=== PATIENT | female | born 1940 | race Caucasian/White ===

== ENCOUNTER → 2024-07-21 10:43 | Outpatient (REF) | payer MEDICARE, SELFPAY | LOC: WDC 10:43 | PROVIDERS: ATTENDING PHYSICIAN Family Medicine | DX: N64.4 Mastodynia (principal) | CPT/HCPCS: 76642; 77062; 77066 ==

== ENCOUNTER 2024-12-11 07:35 | Inpatient (IN) | payer MEDICARE, SELFPAY ==
[2024-12-08] VITALS (12 sets, daily range): BP systolic 128–193; BP diastolic 60–106
--- NOTE | 2024-12-08 15:51 | ED.CVA ---
History of Present Illness
General
Chief Complaint: CVA/TIA Symptoms
Time Seen by Provider: 12/08/24 15:42
Onset of Stroke Symptoms
Onset of symptoms known: No
Time pt last seen normal is known: Yes
Date last time pt seen normal: 01/03/25
History of Present Illness
History of Present Illness:
Patient presents to the emergency department with possible stroke like symptoms. Apparently, she showed up to her sales financial analyst's office, left the car running and went inside without an appointment. There they noted she had some slurred speech
and a possible left-sided facial droop. Unknown last known well though she was seen Friday and was apparently normal. Patient is somewhat disoriented and does not provide a reliable history. She denies any pain anywhere at this time. States she
feels at her baseline.
Past History
Past History
ED Past Medical History: GERD, HTN, Hypercholesterolemia and Psychiatric (Anxiety)
ED Past Surgical History: Cholecystectomy, Gynecological (Tubal ligation) and Orthopedic (Right total knee replacement)
Social History
Tobacco: Former smoker
Alcohol: None
Drug: None
Personal:
Living: alone
Employment: Retired
Family History
Family History: Other (Noncontributory)
Phy Exam
Physical Exam
Physical Exam:
GENERAL APPEARANCE: NAD, well developed/ well nourished
EYES lids/conjunctiva normal
EARS/NOSE/THROAT Mucous membranes moist, uvula midline without oral pharyngeal erythema, exudate or swelling
HEAD/NECK normocephalic atraumatic, neck is supple.
RESPIRATORY respiratory effort normal, speaks in full sentences, no accessory muscle use. Lungs clear to auscultation without rhonchi, wheezes, rales
CARDIAC Regular rate and rhythm, no edema.
ABDOMINAL Soft, ND/NT. No pulsatile masses on exam, rebound tenderness, Mccain sign or pain over Mcburney's point.
MUSCLES/EXTREMITIES No abnormal range of motion, no swelling.
SKIN Warm, pink and dry. No rashes
NEUROLOGICAL Awake alert. Mild disorientation (can say month but not year) mild dysarthria noted. There is a left-sided central facial droop that can be overcome. Cranial nerves are otherwise intact. She has 5 out of 5 strength in all 4
extremities. Sensation intact to light touch throughout. No dysmetria or ataxia.
PSYCH Normal mood and affect
Course
Orders/Labs/Results
Orders:
Orders
12/08/24 15:27
CT Head W/o Iv Contrast Urgent
Comment:
Reason For Exam: facial droop/ confusion
12/08/24 15:50
Alcohol Urgent
Basic Metabolic Panel Urgent
CBC/With Diff [Complete Blood Count/With Diff] Urgent
Urinalysis Reflex To Culture Urgent
Date Specimen was Collected: 12/08/24
Time Specimen was Collected: 18:05
12/08/24 17:46
Electrocardiogram (*1) Urgent
Reason for Study: TIA/Stroke
CR Chest - 2 Views Urgent
Comment:
Reason For Exam: altered mental status
Abnormal Lab Results
12/08/24
15:50
MCH 33.0 H pg
(27.0-31.0)
Absolute Lymphs (auto) 1.1 L 10^3/uL
(1.2-3.4)
Absolute Monos (auto) 0.8 H 10^3/uL
(0.1-0.6)
Lymphocytes % 16.2 L %
(20.5-51.1)
Monocytes % 11.6 H %
(1.7-9.3)
BUN 29 H mg/dl
(7-17)
Creatinine 1.1 H mg/dL
(0.6-1.0)
12/08/24 15:50
12/08/24 15:50
Vital Signs
Initial and Last Documented VS:
Initial Vital Signs
Temp Pulse Resp BP Pulse Ox
98.2 F 74 18 193/106 97
12/08/24 15:23 12/08/24 15:23 12/08/24 15:23 12/08/24 15:23 12/08/24 15:23
Last Documented Vital Signs
Temp Pulse Resp BP Pulse Ox
98.2 F 76 19 128/60 94
12/08/24 15:23 12/08/24 17:32 12/08/24 17:32 12/08/24 17:32 12/08/24 17:32
*Pulse Oximetry
SaO2: 96
Oxygen Mode of Delivery: Room air
Patient hypoxic: no
*Critical Care Note
Total Time (30-74mins, 75-104mins- exclusive of procedures): Not Applicable
ED Attending Note
ED Attending Note
ED Attending Note:
Patient presents to the department with disorientation, dysarthria, slight facial droop that is overcome easily. Unknown last known well so she does not a thrombolytic candidate. No signs or symptoms of a large vessel occlusion at this time. Will
workup for altered mental status with plan to likely admit for stroke rule out otherwise.
-
Portions of this chart may have been created with voice recognition software.� Occasional wrong word or��sound alike� substitutions may have occurred due to the inherent limitations of voice recognition software.
Discharge Plan
Departure
Prescriptions:
No Action
calcium carbonate [Oyster Shell Calcium 500] 500 MG tablet
500 mg PO DAILY
venlafaxine [Effexor XR] 150 mg Capsule,Extended Release 24hr
150 mg PO DAILY
nebivolol [Bystolic] 5 mg Tablet
5 mg PO DAILY
Jose Laser Focus Gummys
2 gummy PO DAILY
Referrals:
Joe Suarez MD [Family Provider, [facility]]
Interventions
Interventions:
*Risk Screen - Suicide Last Done: 12/08/24 15:23
*General Assessment Last Done: 12/08/24 15:23
*Neglect/Abuse Screening Last Done: 12/08/24 15:23
*ED COVID-19 Vaccine History Last Done: 12/08/24 15:23
ED- Pulmonary Assessment Last Done: 12/08/24 15:53
ED- Neurological Assessment Last Done: 12/08/24 15:53
ED- Cardiac Assessment Last Done: 12/08/24 15:53
Discharge Date and Time
Print Language: IRISH
[2024-12-08 15:58] LABS: Hematocrit 42.5 % (37.0-47.0); Hemoglobin 14.7 g/dL (12.0-16.0); Mean Corp Hgb Conc. 34.6 g/dL (33.0-37.0); Mean Corpuscular Volume 95.5 fL (81.0-99.0); Nucleated Red Blood Cells % 0 %; Platelet Count 209 10^3/uL (130-400); Red Cell Dist. Width 12.6 % (11.5-14.5)
[2024-12-08 16:26] LABS: Blood Urea Nitrogen 29 mg/dl (7-17); Calcium 10.2 mg/dl (8.4-10.2); Carbon Dioxide 30 mmol/L (22-30); Chloride 103 mmol/L (98-107); Glucose 79 mg/dl (70-99); Sodium 139 mmol/L (135-145); eGFR 50.17
--- NOTE | 2024-12-08 19:52 | HPS.HSE ---
Family Physician
-
Family Physician: Joe Suarez
Chief Complaint
-
Slurred speech
History of Present Illness
This is a 84-year-old female with past medical history significant for hypertension, hyperlipidemia, GERD who presents with flulike symptoms.
She was started financial services education consultant's office with an appointment and appeared confused. She left the car running and came inside. She had slurring of speech and small left-sided facial droop. 1 block was called. When patient arrived in the
emergency department she had dysarthria and mild left-sided drooping that can be overcome. She remains disoriented only being oriented to person and place but not year. Stroke alert was called. Last normal was Friday seen by her family.
In the ED she was afebrile, blood pressure was 120/60 with a pulse of 75 and she was satting 96% on room air. ECG showed normal sinus rhythm at a rate of 70.
CT of the head shows no acute infarct but old appearing lacunar infarct and diffuse small vessel disease.
Chest x-ray was clear.
CBC was unremarkable, electrolytes BUN/creatinine within the normal range. Her creatinine is 1.1 which is up from 0.6 about 6 years ago.
UA is pending.
Medical History
Past Medical History
Past Medical History: Reports GERD, HTN and Hypercholesterolemia
Past Surgical History: Reports Cholecystectomy, Orthopedic (Right total knee arthroplasty) and Other (Inguinal hernia repair)
Social History
Tobacco: Former Smoker
Alcohol: None
Drug: None
Living: Alone
Family History
Family History: Not pertinent
Allergies / Home Medications
Allergies reflects when Allergies were last updated in [employer].
Home Medications with original date entered in [employer]
Allergy/Medication List:
Allergies
Allergy/AdvReac Type Severity Reaction Status Date / Time
felodipine Allergy Rash, Verified 02/01/23 14:58
itching
penicillin G Allergy Rash,itchin Verified 02/01/23 14:58
g
Penicillins Allergy Rash, Verified 02/01/23 14:58
itching
Sulfa (Sulfonamide Allergy Pharmacy Verified 02/01/23 14:58
Antibiotics) to Review
sulfamethoxazole Allergy Pharmacy Verified 02/01/23 14:58
to Review
trimethoprim Allergy Pharmacy Verified 02/01/23 14:58
to Review
Adhesive Allergy Itching Uncoded 02/01/23 14:58
Home Medications
calcium carbonate (Oyster Shell Calcium 500) 500 mg PO DAILY 05/26/18
Jose Laser Focus Gummys 2 gummy PO DAILY 12/08/24
nebivolol 5 mg tablet (Bystolic) 5 mg PO DAILY 12/08/24
venlafaxine 150 mg capsule,extended release 24 hr (Effexor XR) 150 mg PO DAILY 12/08/24
Review of Systems
-
History Source: Patient
Constitutional: Reports No Symptoms
EENT: Reports No Symptoms
Respiratory: Reports No Symptoms
Cardiac: Reports No Symptoms
Abdomen/GI: Reports No Symptoms
: Reports No Symptoms
Musculoskeletal: Reports No Symptoms
Skin: Reports No Symptoms
Neurological: Reports Other (Slurred speech)
Endocrine: Reports No Symptoms
Hematologic/Lymphatic: Reports No Symptoms
Psych: Reports No Symptoms
Physical Exam
Vital Signs
Vital Signs
Temp Pulse Resp BP Pulse Ox
98.2 F 75 20 128/60 96
12/08/24 15:23 12/08/24 19:30 12/08/24 19:30 12/08/24 17:32 12/08/24 19:30
Physical Exam
General: Well Developed, Well Nourished and No Apparent Distress
HEENT: NormoCephalic, Moist mucous membranes and Atraumatic
Respiratory: Clear
Cardiac: S1/S2 and Regular Rhythm; No Murmur or Rub
GI: Soft, Non Tender, Non Distended and Normal Bowel Sounds; No Organomegaly
Rectal: Deferred by Provider
Musculoskeletal: No Clubbing, No Cyanosis and No Edema
Skin: No Rash
Neuro: Oriented (oriented x 2), Nonfocal/grossly intact and Facial Droop
Hematologic/Lymphatic: No Lymphadenopathy
Psych: Calm
Laboratory Results
-
12/08/24 15:50
12/08/24 15:50
Laboratory Results
Total Bilirubin Cancelled 12/08/24 15:50
AST Cancelled 12/08/24 15:50
ALT Cancelled 12/08/24 15:50
Alkaline Phosphatase Cancelled 12/08/24 15:50
Data Reviewed
-
Diagnostic Radiology: Image Personally Visualized and interpreted
CT Scan: Report Reviewed by me
Medical Tests (Nuc Med, Echo, EKG etc): Image Personally Visualized and interpreted
Lab Data: Labs Reviewed by me
Old Records: Reviewed
Impression/Plan
-
IMPRESSION:
84-year-old with history of hypertension and hyperlipidemia presenting to the emergency department with left-sided facial droop and slurred speech and some disorientation concerning for CVA or TIA. On my examination NIHSS score 0. There is no
facial droop. There is no slurred speech. She does have moderate risk of CVA. 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
PLAN:
CVA/TIA
-Admit to telemetry observation
-Start aspirin 324 now, then 81 daily
- start low dose statin
-Speech and swallow evaluation, then cholesterol-lowering diet if passed
-Neurochecks every 4 hours
-Echo, MRI in a.m.
-Check TSH
- UA pending
-Cardiovascular panel, ESR
-Continue antihypertensives with permissive hypertension for now
-Neurology consultation
DVT prophylaxis�Lovenox subcu
CODE STATUS�full code
[2024-12-08 22:09] LABS: Urine Character Clear (Clear)
[2024-12-09] VITALS (10 sets, daily range): BP systolic 146–198; BP diastolic 54–117; PULSE 65–68; O2SAT 95
--- NOTE | 2024-12-09 01:00 | PTCARENOTE ---
Pt is a 84-year-old female with arrived from ED at 00:30 dx TIA, PMH HTN, HLD, GERD who presents with flulike symptoms. Pt passed the swallow eval., diet ordered. Pt AOx3, bed in a low position, call light in reach, care ongoing.
[2024-12-09] MEDS: ASPIRIN 325 MG PO (01:45)
[2024-12-09 06:20] LABS: Hematocrit 40.5 % (37.0-47.0); Hemoglobin 13.8 g/dL (12.0-16.0); Mean Corp Hgb Conc. 34.1 g/dL (33.0-37.0); Mean Corpuscular Volume 96.4 fL (81.0-99.0); Platelet Count 187 10^3/uL (130-400); Red Cell Dist. Width 12.6 % (11.5-14.5)
[2024-12-09 06:42] LABS: HDL Cholesterol 50 mg/dl; LDL Cholesterol, Calculated 103 mg/dl; Magnesium 2.3 mg/dl (1.6-2.3); Very Low Density Lipoprotein 24 mg/dl (0-30)
[2024-12-09] MEDS: BYSTOLIC 5 MG PO (08:07)
[2024-12-09] MEDS: LOW STRENGTH ASPIRIN 81 MG PO (08:07)
[2024-12-09] MEDS: EFFEXOR XR 150 MG PO (08:07)
--- NOTE | 2024-12-09 08:35 | CON.NEURO4 ---
Addendum entered and electronically signed by Ruy Colindres MD 12/09/24 12:07:
Studies reviewed.
I have personally examined the patient. I reviewed and agree with the E BUSINESS PROJECT MANAGER's Note.
My addenda:
Awake, alert, interactive. No acute distress.
Speech intact.
Follows 2-step requests w/ mild difficulty. No tremor.
Extra-ocular movements grossly intact.
Facial movements full and symmetric. Hearing reduced to normal conversational volume.
Normal UE movements bilaterally.
Neck: full ROM.
Chest: no dyspnea
Heart: no JVD
Ext: (-) Clubbing, (-) Cyanosis, (-) Edema
IMPRESSIONS/RECOMMENDATIONS:
Abrupt onset of change in mental status. Differential diagnosis is extensive for this patient unfortunately they may include underlying dementia, stroke, nonconvulsive status, and psychological disassociative state
Check MRI of brain with and without contrast
Check blood work potential metabolic causes
Provide thiamine
Check EEG only because of the acute change and her confusion
Continue antidepressant
Continue newly initiated aspirin
Would initiate atorvastatin 40 mg due to LDL greater than 70 and the possibility that this event represented an acute ischemic stroke
D/W patient
All questions answered.
Will continue to follow patient.
Original Note:
Documented by User: Dali Chowdhury NP 12/09/24 11:23
Consultation - Neurology 4
-
CONSULTING PHYSICIAN: Ruy Colindres MD
REFERRING PHYSICIAN: Hospitalists/Dr. Alves
DICTATED BY: COLLEEN Villasenor
DATE/TIME OF REQUEST: 12/09/24
DATE/TIME OF CONSULTATION: 12/09/24
Reason for Consultation: Change in mental status
History of Present Illness:
This is an 84-year-old right-handed female who has presented to the hospital on 12/08/24 with report of confusion. Patient lacks insight to the events leading her to the hospital but reports it is because she got upset about the of her son in
front of her financial dealers. Per medical records, the patient was last seen in her usual state by her family three days ago on 12/06/24. Yesterday (12/09/24), the patient went to her manager of financial planning's office, left her car running in the parking lot
and entered the building. She appeared confused to staff and they had concern for dysarthria and left facial drooping, prompting them to call 911. On arrival in the ER, she was still confused, prompting a stroke alert to be called. CT head was
obtained and is negative for any acute abnormalities but is suggestive of an old left subinsular lacunar infarct. She was not a candidate for TNK/IAT due to NIHSS 0. Blood pressure was elevated at 193/106. She was loaded with aspirin. Patient denies
any headache, dizziness, vision changes, speech/swallowing difficulty, numbness, and weakness.
Past Medical History: HTN, HLD, GERD, chronic gastritis
Surgical History: Cholecystectomy, R TKR, inguinal hernia repair
Family History: Reviewed and noncontributory.
Social History: Former smoker. Denies alcohol and illicit drug use.
Allergies: Penicillins, sulfamethoxazole, trimethoprim, felodipine, adhesive.
Home Medications: See below.
Review of Symptoms:
Patient denies any fever, headache, chest pain, shortness of breath, GI or symptoms.
�Per the HPI.�All systems are reviewed negative except above.
Physical Exam:
The patient is afebrile, abdomen is nondistended, breathing is unlabored, skin is warm and dry, no edema, swan neck changes in bilateral feet.
NIH Stroke Scale:
I performed the NIH stroke scale on the patient on 12/09/24 at 0845. The patient scored 0 points on the NIH stroke scale assessment, which were assigned as follows: See below.
Neurologic Examination:
The patient is awake, alert and oriented x 3, lacks insight. Difficulty naming next holidays, most recent holiday- day, unable to state before that. There is no aphasia or dysarthria. Severe difficulty following two-step commands. On cranial
nerve assessment, pupils are 3 mm bilateral, round and reactive to light and accommodation. Visual steiner are full. Extraocular movements are mildly reduced with upgaze. Facial sensations are intact and bilaterally symmetrical, there is no facial
asymmetry. Hearing is diminished bilaterally to normal conversation volume. Tongue palate and uvula are midline. Sternocleidomastoid strengths are full bilaterally. Motor strengths are 5/5 bilateral upper and lower extremities on medical research
[place] scale. There is no drift or involuntary movement noted. Deep tendon reflexes are 2+ bilateral upper and lower extremities and Babinski is absent bilaterally. There was no extinction noted on double simultaneous stimulation. Coordination is
intact by finger to nose bilaterally.
Lab Results: See below.
Neuro Imaging:
1. CT Head 12/08/24: No acute intracranial abnormality noted. There is moderate subcortical, deep, and periventricular white matter low-attenuation, compatible with changes of chronic small vessel ischemic disease. Small hypodensity within the left
subinsular white matter likely prior small lacunar infarction.
2. Vascular Ultrasound 12/09/24: Minimal calcified plaque within the left carotid bulb, measurements suggestive of less than 50% stenosis as per modified Society of Radiologists in Ultrasound consensus criteria (IAC carotid criteria white paper,
2020). No significant right carotid bulb plaque or stenosis.
Differentials for the patient's presentation include:
1. Change in mental status; uncertain etiology, possibilities include small ischemic stroke, hypertensive encephalopathy, metabolic abnormality, underlying cognitive impairment.
Patient has the following risk factors for their symptoms: HTN, HLD, age
IV Tenecteplase/IAT candidacy: She was not a candidate for TNK/IAT due to NIHSS 0.
Recommendations:
-Continue aspirin 81mg daily.
-MRI brain noncontrast pending.
-Goal normotension.
-Checking blood work for metabolic abnormalities.
-Goal normoglycemia, hbA1c is 5.6.
-LDL goal <70. LDL is 103. Initiate atorvastatin 40mg daily.
-NIHSS and neurological checks per unit guidelines.
-Provide patient with a stroke education packet.
-PT/OT/ST evaluation.
-DVT prophylaxis.
Discussed patient care with: Dr. Colindres, the patient
Vital Signs and Labs
-
Vital Signs and Labs:
Vital Signs
Temp Pulse Resp BP Pulse Ox
98.2 F 72 16 196/87 92
12/09/24 07:10 12/09/24 07:10 12/09/24 07:10 12/09/24 07:10 12/09/24 07:10
Lab Results
12/09/24 06:01
12/08/24 15:50
Sodium 139 mmol/L (135-145) 12/08/24 15:50
Potassium mmol/L (3.5-5.1) 12/08/24 15:50
BUN 29 mg/dl (7-17) H 12/08/24 15:50
Glucose 79 mg/dl (70-99) 12/08/24 15:50
Calcium 10.2 mg/dl (8.4-10.2) 12/08/24 15:50
LDL Cholesterol, Calc 103 mg/dl 12/09/24 06:01
Medications
-
Active Medications
Generic Name Dose Route Start Last Admin
Trade Name Freq PRN Reason Stop Dose Admin
Acetaminophen 650 mg 12/09/24 00:53
Acetaminophen 650 Mg Rectal Suppository RECTAL 01/06/25 00:52
Q4HPRN PRN
HERRON, mild pain, or temp >100.4F
Acetaminophen 650 mg 12/09/24 00:53
Acetaminophen 325 Mg Tablet PO 01/06/25 00:52
Q4HPRN PRN
HERRON, mild pain, or temp >100.4F
Alprazolam 0.25 mg 12/09/24 00:53
Alprazolam 0.25 Mg Tablet PO 01/06/25 00:52
DAILY PRN
for MRI as needed
Aspirin 81 mg 12/09/24 08:00 12/09/24 08:07
Aspirin 81 Mg Chewable Tablet PO 01/06/25 07:59 81 mg
DAILY RAQUEL Administration
Atorvastatin Calcium 20 mg 12/09/24 18:00
Atorvastatin (Lipitor) 20 Mg Tablet PO 01/06/25 17:59
QPM RAQUEL
Enoxaparin Sodium 40 mg 12/09/24 18:00
Enoxaparin Sodium 40 Mg/0.4 Ml Syringe SC 01/06/25 17:59
QPM RAQUEL
Nebivolol 5 mg 12/09/24 08:00 12/09/24 08:07
Nebivolol Hcl 2.5 Mg Tablet PO 01/06/25 07:59 5 mg
DAILY RAQUEL Administration
Venlafaxine HCl 150 mg 12/09/24 08:00 12/09/24 08:07
Venlafaxine 150 Mg Extended Release Capsule PO 01/06/25 07:59 150 mg
DAILY RAQUEL Administration
Home Medications
�Medication �Instructions �Recorded
calcium carbonate (Oyster Shell 500 mg PO DAILY Gastrointestinal 05/26/18
Calcium 500) Issue
Jose Laser Focus Gummys 2 gummy PO DAILY Supplement 12/08/24
nebivolol 5 mg tablet (Bystolic) 5 mg PO DAILY Blood Pressure 12/08/24
venlafaxine 150 mg 150 mg PO DAILY Mental 12/08/24
capsule,extended release 24 hr Health/Anxiety
(Effexor XR)
NIH Stroke Score
Subsequent NIH Scale
Date of Subsequent NIH Scale: 12/09/24
Time of Subsequent NIH Scale: 08:45
NIH Stroke Score
Level of Consciousness: 0 - Alert
LOC Questions: 0-Answers both correctly
LOC Commands: 0-Performs both correctly
Best Horizontal Gaze: 0-Normal
Visual Steiner: 0=Normal, no visual loss
Facial Palsy: 0=Normal, symmetrical
Motor - Right Arm: 0=No drift 10 seconds
Motor - Left Arm: 0=No drift 10 seconds
Motor - Right Le-No drift 5 seconds
Motor - Left Le-No drift 5 seconds
Limb Ataxia: 0-Absent
Sensation: 0-Normal
Best Language: 0-No aphasia
Dysarthria: 0-Normal
Extinction and Inattention: 0-No abnormality
NIH Total Score:: 0
Modified Jing (mRS) Score
Modified Jing Scale (mRS): Moderate disability. Requires some help, able to walk unassisted.
Score: 3
Alteplase Contraindication
Inclusion and Exclusion criteria reviewed: Yes
Reasons for NON-Tx with Thrombolytics ABSOLUTE Exclusions: Greater than 4.5 hrs from onset of sxs
IAT Contraindications: NIHSS < 6

Documented by User: Ruy Colindres MD 12/09/24 11:50
NIH Stroke Score
NIH Stroke Score
NIH Total Score:: 0
Modified Jing (mRS) Score
Score: 3
Past History
Past History
ED Past Medical History: GERD, HTN, Hypercholesterolemia and Psychiatric (Anxiety)
ED Past Surgical History: Cholecystectomy, Gynecological (Tubal ligation) and Orthopedic (Right total knee replacement)
Social History
Tobacco: Former smoker
Alcohol: None
Drug: None
Personal:
Living: alone
Employment: Retired
Family History
Family History: Other (Reviewed and noncontributory)
Medications
-
Medications:
Generic Name Dose Route Start Last Admin
Trade Name Freq PRN Reason Stop Dose Admin
Acetaminophen 650 mg 12/09/24 00:53
Acetaminophen 650 Mg Rectal Suppository RECTAL 01/06/25 00:52
Q4HPRN PRN
HERRON, mild pain, or temp >100.4F
Acetaminophen 650 mg 12/09/24 00:53
Acetaminophen 325 Mg Tablet PO 01/06/25 00:52
Q4HPRN PRN
HERRON, mild pain, or temp >100.4F
Alprazolam 0.25 mg 12/09/24 00:53
Alprazolam 0.25 Mg Tablet PO 01/06/25 00:52
DAILY PRN
for MRI as needed
Aspirin 81 mg 12/09/24 08:00 12/09/24 08:07
Aspirin 81 Mg Chewable Tablet PO 01/06/25 07:59 81 mg
DAILY RAQUEL Administration
Atorvastatin Calcium 20 mg 12/09/24 18:00
Atorvastatin (Lipitor) 20 Mg Tablet PO 01/06/25 17:59
QPM RAQUEL
Enoxaparin Sodium 40 mg 12/09/24 18:00
Enoxaparin Sodium 40 Mg/0.4 Ml Syringe SC 01/06/25 17:59
QPM RAQUEL
Nebivolol 5 mg 12/09/24 08:00 12/09/24 08:07
Nebivolol Hcl 2.5 Mg Tablet PO 01/06/25 07:59 5 mg
DAILY RAQUEL Administration
Venlafaxine HCl 150 mg 12/09/24 08:00 12/09/24 08:07
Venlafaxine 150 Mg Extended Release Capsule PO 01/06/25 07:59 150 mg
DAILY RAQUEL Administration
[2024-12-09 08:57] LABS: Glycohemoglobin (HgbA1c) 5.6 % (4.0-5.6)
--- NOTE | 2024-12-09 09:00 | PTOTSP ---
Speech Language Pathology
Pt seen with speech/language evaluations. No dysarthria noted. Language evaluated via the Quick Aphasia Battery (QAB), form 1. Pt with an overall score of 9.70, indicative of skills WNL. Pt scored WNL on all subtests except repetition with a
score of 8.75, indicative of mild deficits. However, pt reported reduced hearing on L, so suspect related to reduced hearing, not a true deficit.
Pt also seen for clinical bedside swallow evaluation. Seen with breakfast tray of regular solids, and thin liquids provided. Adequate mastication, bolus formation, and A-P transit noted. One coughing episode noted when talking with a mouthful of
food. No other coughing noted.
Recommend:
(1) Regular solids/thin liquids
(2) General aspiration precautions
(3) Meds as tolerated
(4) PHOTOTYPESETTING EQUIPMENT MONITOR to follow pending MRI
[2024-12-09 10:00] LABS: ALT (SGPT) 15 U/L (0-35); AST (SGOT) 23 U/L (14-36); Albumin 3.8 g/dl (3.5-5.0); Alkaline Phosphatase 95 U/L (38-126); Blood Urea Nitrogen 23 mg/dl (7-17); Calcium 9.6 mg/dl (8.4-10.2); Carbon Dioxide 32 mmol/L (22-30); Chloride 104 mmol/L (98-107); Glucose 105 mg/dl (70-99); Potassium 4.1 mmol/L (3.5-5.1); Sodium 140 mmol/L (135-145); Total Protein 6.0 g/dl (6.3-8.2); eGFR 50.17
[2024-12-09 10:47] LABS: Ferritin 42.4 ng/ml (11.1-264.0)
[2024-12-09 11:19] LABS: Folate > 20.0 ng/ml (2.76-20); Vitamin B12 994 pg/ml (239-931)
--- NOTE | 2024-12-09 11:38 | W.PN.HOSP.TC ---
Today's Communication/Plan
-
see A/P
Assessment / Plan
Assessment / Plan
HPI: 84-year-old with history of hypertension and hyperlipidemia presenting to the emergency department with left-sided facial droop, slurred speech and some disorientation concerning for CVA/TIA.
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 Stroke alert was called.
In the ED, there is no facial droop or slurred speech appreciated.
She does have moderate risk of CVA.
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
A/P:
# facial droop, slurred speech, disorientation, which appear to have resolved, admit for CVA/TIA work up
CT head showed old lacunar infarcts
Check MRI brain, low dose Valium ordered for claustrophilia
Started aspirin 324 now, then 81 daily
started low dose statin
Speech and swallow evaluation, then cholesterol-lowering diet if passed
Neurochecks every 4 hours
I do not think echo is needed at this time, especially if MRI brain negative for stroke , echo cancelled
Urine culture sent, follow up
Continue antihypertensives with permissive hypertension for now
Neurology consultation
PT OT eval
# hypertension urgency
Cont ORDER TRACER Bystolic
IV hydralazine for SBP > 180
Would need to better treat BP prior to discharge
# hyperlipidemia
LDL 103
started low dose statin
DVT prophylaxis�Lovenox subcu
CODE STATUS�full code
DW son on the phone
Anticipated Discharge: Within 24 hours
Subjective/Interval History
-
Date of Service: December 09, 2024
Objective Data
-
Labs:
Laboratory Results
12/09/24
06:01
WBC 5.9
Hgb 13.8
Hct 40.5
Plt Count 187
Sodium 140
Potassium 4.1
Chloride 104
Carbon Dioxide 32 H
BUN 23 H
Creatinine 1.1 H
Glucose 105 H
Calcium 9.6
Total Bilirubin 0.7
AST 23
ALT 15
Alkaline Phosphatase 95
Vital Signs:
Vital Signs
Temp Pulse Resp BP Pulse Ox
36.7 C 72 16 198/96 95
12/09/24 11:05 12/09/24 11:05 12/09/24 11:05 12/09/24 11:05 12/09/24 11:05
Review of Systems
-
History Source: Patient
All other systems: Reviewed and negative
Neuro: Denies Weakness, Numbness or Ataxia
Physical Exam
-
General: Well Developed, Well Nourished, No Apparent Distress, Comfortable and Conversant; Negative Respiratory Distress
HEENT: Normocephalic, Atraumatic, Nose Appears Normal and Ears Appear Normal; Negative Oxygen
Respiratory: Clear to Auscultation and Non Labored Respirations; Negative Accessory Resp Muscle Use
Cardiac: Regular Rhythm and S1/S2
GI: Soft, Nontender, Nondistended and Normal Bowel Sounds
Skin: Warm and Dry
Neuro: Awake, Alert, Oriented and AO x 3; Negative No Sensory Deficits, Slurred Speech or Facial Droop
Psych: Calm and Intact Judgement/Insight
Data Reviewed
-
CT Scan: Report Reviewed by me
Labs: Labs Reviewed by me
[2024-12-09] MEDS: VITAMIN B1 100 MG PO (14:11)
--- NOTE | 2024-12-09 14:43 | CM ---
Patient seen at bedside
IA completed
CM consult completed - stroke/tia
Awaiting MRI
MCLEOD form explained & signed. In chart
Patient lives alone in 2 story home, 1 WILD, 12 steps to bed/bath
PLOF: Independent
states Independent with ADL's
DME: Cane, shower chair
had [facility] 2014 after knee sx, had outpatient PT in past
PT/OT eval
PCP: Joe Suarez
Pharmacy: [address], [place]
PLAN: TBD, follow hospital progress/work-up, CM to follow for needs
--- NOTE | 2024-12-09 15:32 | EEG.RPT ---
Electroencephalogram Report
Recording
Date of EE12/09/24
Type of EEG: Routine
Length of EEG recordin minutes
Done with Video Recording: No
Patient Status: Inpatient
Recording Conditions: Awake and Drowsy
Hyperventilation Performed: No
Photic Stimulation Performed: Yes
Report
LESS THAN 1 HOUR EEG REPORT
LESS THAN 1 HOUR EEG INTERPRETATION:
Likely unremarkable EEG for age
CLINICAL CORRELATION:
Although normative values not been established for a person of this advanced age, the patient�s symmetry of the background suggests that this study was unremarkable.
A normal EEG does not rule out a diagnosis of epilepsy. If clinical suspicion for seizure persists, a prolonged recording may be warranted.
Clinical correlation is advised.
METHODS:
A 21 channel digitized electroencephalogram (EEG) was performed using the 10/20 international system of electrode placement and one-lead of ECG recorded. The VasSol quantitative review system was utilized.
ELECTROENCEPHALOGRAPHER IMPRESSION(S):
Quality of study
Good
Background
There was an unremarkable anterior-posterior voltage gradient of alpha frequency.
With eye opening the background activity changed to a low voltage mixture of frequencies.
There were no significant asymmetries of background activity noted.
Sleep
Drowsiness present
Photic Stimulation
No driving
ECG
Normal sinus rhythm
[2024-12-09] MEDS: LIPITOR 20 MG PO (17:33)
[2024-12-09] MEDS: LOVENOX 40 MG SC (17:34)
[2024-12-09] MEDS: APRESOLINE 10 MG IV (17:56)
[2024-12-09] MEDS: SENOKOT-S 1 TABLET PO (22:50)
[2024-12-09] MEDS: MELATONIN 5 MG PO (22:50)
[2024-12-10] VITALS (7 sets, daily range): BP systolic 108–196; BP diastolic 62–98; PULSE 68; O2SAT 95
[2024-12-10 07:25] LABS: Blood Urea Nitrogen 17 mg/dl (7-17); Calcium 9.0 mg/dl (8.4-10.2); Carbon Dioxide 32 mmol/L (22-30); Chloride 105 mmol/L (98-107); Glucose 118 mg/dl (70-99); Magnesium 2.3 mg/dl (1.6-2.3); Potassium 4.0 mmol/L (3.5-5.1); Sodium 140 mmol/L (135-145); eGFR > 60.00
[2024-12-10] MEDS: EFFEXOR XR 150 MG PO (08:54)
[2024-12-10] MEDS: BYSTOLIC 5 MG PO (08:54)
[2024-12-10] MEDS: SENOKOT-S 1 TABLET PO ×2 (08:55→20:13)
[2024-12-10] MEDS: VITAMIN B1 100 MG PO (08:55)
[2024-12-10] MEDS: LOW STRENGTH ASPIRIN 81 MG PO (08:55)
[2024-12-10] MEDS: VALIUM INJECTION 1 MG IV (10:49)
--- NOTE | 2024-12-10 11:07 | W.PN.HOSP.TC ---
Today's Communication/Plan
-
see A/P
Assessment / Plan
Assessment / Plan
HPI: 84-year-old with history of hypertension and hyperlipidemia presenting to the emergency department with left-sided facial droop, slurred speech and some disorientation concerning for CVA/TIA.
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 Stroke alert was called.
In the ED, there is no facial droop or slurred speech appreciated.
She does have moderate risk of CVA.
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
A/P:
# facial droop, slurred speech, disorientation, which appear to have resolved, admit for CVA/TIA work up
CT head showed old lacunar infarcts
Check MRI brain, low dose Valium ordered for claustrophilia
Carotid US unrevealing: Minimal calcified plaque within the left carotid bulb, less than 50% stenosis. No significant right carotid bulb plaque or stenosis.
Started aspirin 324 now, then 81 daily
started low dose statin, LDL 103
Cont low cholesterol diet
Neurochecks every 4 hours
I do not think echo is needed at this time, especially if MRI brain negative for stroke , echo cancelled
Urine culture sent, Mixed guicho present, hence probable contamination
Continue antihypertensives with permissive hypertension for now
Neurology consultation
PT OT eval
# hypertension urgency
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
Add lisinopril 5 mg (pt was previously on lisinopril 5 mg)
IV hydralazine for SBP > 180
# hyperlipidemia
LDL 103
started low dose statin
DVT prophylaxis�Lovenox subcu
CODE STATUS�full code
DW RN
Anticipated Discharge: Within 24 hours
Subjective/Interval History
-
Date of Service: December 10, 2024
Objective Data
-
Labs:
Laboratory Results
12/10/24
06:15
Sodium 140
Potassium 4.0
Chloride 105
Carbon Dioxide 32 H
BUN 17
Creatinine 0.8
Glucose 118 H
Calcium 9.0
Vital Signs:
Vital Signs
Temp Pulse Resp BP Pulse Ox
36.9 C 68 16 168/89 96
12/10/24 03:00 12/10/24 03:00 12/10/24 03:00 12/10/24 03:00 12/10/24 03:00
I&O
12/09/24 12/10/24 12/11/24
06:59 06:59 06:59
Intake Total 3237 / 3237
Balance 3237 / 3237
Review of Systems
-
History Source: Patient
All other systems: Reviewed and negative
Physical Exam
-
General: Well Developed, Well Nourished, No Apparent Distress, Comfortable and Conversant; Negative Respiratory Distress
HEENT: Normocephalic, Atraumatic, Nose Appears Normal and Ears Appear Normal; Negative Oxygen
Respiratory: Clear to Auscultation and Non Labored Respirations; Negative Accessory Resp Muscle Use
Cardiac: Regular Rhythm and S1/S2
GI: Soft, Nontender, Nondistended and Normal Bowel Sounds
Skin: Warm and Dry
Neuro: Awake, Alert, Oriented and AO x 3; Negative No Sensory Deficits, Slurred Speech or Facial Droop
Psych: Calm and Intact Judgement/Insight
Data Reviewed
-
CT Scan: Report Reviewed by me
Labs: Labs Reviewed by me
[2024-12-10] MEDS: ZESTRIL 5 MG PO (13:21)
--- NOTE | 2024-12-10 14:05 | W.PN.NEURO.1 ---
Today's Communication / Plan
-
Continue newly initiated aspirin, will add clopidogrel for completeness and dose for the next 19 days
Continue newly initiated atorvastatin 40 mg due to LDL greater than 70
Neuro Assessment/Plan
Assessment
Abrupt onset of change in mental status. Differential diagnosis is most likely secondary to acute ischemic stroke bilaterally as demonstrated by MRI of brain
Plan
Continue antidepressant
Continue newly initiated aspirin, will add clopidogrel for completeness and dose for the next 19 days
Continue newly initiated atorvastatin 40 mg due to LDL greater than 70
Rehabilitation evaluation and treatment
Goal of normotension
Will follow-up as needed
Subjective/Objective
Subjective Data
Date of Service: December 10, 2024
Objective Data
Vital Signs
Temp Pulse Resp BP Pulse Ox
36.9 C 60 16 168/73 96
12/10/24 13:28 12/10/24 13:28 12/10/24 13:28 12/10/24 13:28 12/10/24 13:28
Lab Results
12/09/24 06:01
12/10/24 06:15
Sodium 140 mmol/L (135-145) 12/10/24 06:15
Potassium 4.0 mmol/L (3.5-5.1) 12/10/24 06:15
BUN 17 mg/dl (7-17) 12/10/24 06:15
Glucose 118 mg/dl (70-99) H 12/10/24 06:15
Calcium 9.0 mg/dl (8.4-10.2) 12/10/24 06:15
LDL Cholesterol, Calc 103 mg/dl 12/09/24 06:01
Vitamin B12 994 pg/ml (239-931) H 12/09/24 06:01
Patient Allergies
adhesive Allergy (Verified 12/09/24 22:29)
BANDAID-ITCHING
felodipine Allergy (Verified 12/09/24 22:29)
Rash, itching
penicillin G Allergy (Verified 12/09/24 22:29)
Rash,itching
Penicillins Allergy (Verified 12/09/24 22:29)
Rash, itching
Sulfa (Sulfonamide Antibiotics) Allergy (Verified 12/09/24 22:29)
Pt denies allergy
sulfamethoxazole Allergy (Verified 12/09/24 22:29)
Pt denies allergy
trimethoprim Allergy (Verified 12/09/24 22:)
Pt denies allergy
Data Reviewed
-
MRI Head: Report Reviewed and Image Reviewed
Reviewed with: Physician
Old Records: Summarized
Past History
Past History
ED Past Medical History: CVA, GERD, HTN, Hypercholesterolemia and Psychiatric (Anxiety)
ED Past Surgical History: Cholecystectomy, Gynecological (Tubal ligation) and Orthopedic (Right total knee replacement)
Social History
Tobacco: Former smoker
Alcohol: None
Drug: None
Personal:
Living: alone
Employment: Retired
Family History
Family History: Other (Reviewed and noncontributory)
Medications
-
Medications:
Generic Name Dose Route Start Last Admin
Trade Name Freq PRN Reason Stop Dose Admin
Acetaminophen 650 mg 12/09/24 00:53
Acetaminophen 650 Mg Rectal Suppository RECTAL 01/06/25 00:52
Q4HPRN PRN
HERRON, mild pain, or temp >100.4F
Acetaminophen 650 mg 12/09/24 00:53
Acetaminophen 325 Mg Tablet PO 01/06/25 00:52
Q4HPRN PRN
HERRON, mild pain, or temp >100.4F
Aspirin 81 mg 12/09/24 08:00 12/10/24 08:55
Aspirin 81 Mg Chewable Tablet PO 01/06/25 07:59 81 mg
DAILY RAQUEL Administration
Atorvastatin Calcium 20 mg 12/09/24 18:00 12/09/24 17:33
Atorvastatin (Lipitor) 20 Mg Tablet PO 01/06/25 17:59 20 mg
QPM RAQUEL Administration
Enoxaparin Sodium 40 mg 12/09/24 18:00 12/09/24 17:34
Enoxaparin Sodium 40 Mg/0.4 Ml Syringe SC 01/06/25 17:59 40 mg
QPM RAQUEL Administration
Hydralazine HCl 10 mg 12/09/24 11:45 12/09/24 17:56
Hydralazine 20 Mg/Ml Vial IV 01/06/25 11:44 10 mg
Q4HPRN PRN Administration
SBP > 180
Lisinopril 5 mg 12/10/24 12:00 12/10/24 13:21
Lisinopril 5 Mg Tablet PO 01/07/25 11:59 5 mg
DAILY RAQUEL Administration
Nebivolol 5 mg 12/09/24 08:00 12/10/24 08:54
Nebivolol Hcl 2.5 Mg Tablet PO 01/06/25 07:59 5 mg
DAILY RAQUEL Administration
Polyethylene Glycol 17 grams 12/09/24 22:25
Polyethylene Glycol Powder 17 Grams Packet PO 01/06/25 22:24
DAILYPRN PRN
constipation
Senna/Docusate Sodium 1 tablet 12/09/24 23:00 12/10/24 08:55
Docusate W/Senna (Mee-Colace) Tablet PO 01/06/25 22:59 1 tablet
BID RAQUEL Administration
Thiamine HCl 100 mg 12/09/24 13:00 12/10/24 08:55
Thiamine 100 Mg Tablet PO 12/11/24 08:01 100 mg
DAILY RAQUEL Administration
Venlafaxine HCl 150 mg 12/09/24 08:00 12/10/24 08:54
Venlafaxine 150 Mg Extended Release Capsule PO 01/06/25 07:59 150 mg
DAILY RAQUEL Administration
--- NOTE | 2024-12-10 15:13 | CM ---
CM following re: discharge planning.
Reviewed pt's chart, met with pt.
Per neurology, as shown on MRI, probable acute/subacute infarcts in the bilateral centrum semiovale/periventricular regions as described, nonhemorrhagic.Continue supportive care.
PT and OT will evaluate the pt to determine a level of care at discharge.
D/C plan: uncertain at this time and will depend on pt's progress.
CM will follow with discharge plan updates as hospitalization progresses
[2024-12-10] MEDS: PLAVIX 75 MG PO (16:41)
[2024-12-10] MEDS: LOVENOX 40 MG SC (17:32)
[2024-12-10] MEDS: LIPITOR 20 MG PO (17:32)
[2024-12-10] MEDS: APRESOLINE 10 MG IV (17:33)
[2024-12-10] MEDS: MELATONIN 5 MG PO (21:59)
[2024-12-11 03:03] VITALS: BP 146/64
[2024-12-11 07:05] VITALS: BP 176/85
[2024-12-11 07:22] LABS: Blood Urea Nitrogen 22 mg/dl (7-17); Calcium 8.8 mg/dl (8.4-10.2); Carbon Dioxide 27 mmol/L (22-30); Chloride 105 mmol/L (98-107); Glucose 98 mg/dl (70-99); Potassium 3.7 mmol/L (3.5-5.1); Sodium 139 mmol/L (135-145); eGFR > 60.00
[2024-12-11] MEDS: BYSTOLIC 5 MG PO (09:19)
[2024-12-11] MEDS: EFFEXOR XR 150 MG PO (09:20)
[2024-12-11] MEDS: VITAMIN B1 100 MG PO (09:20)
[2024-12-11] MEDS: PLAVIX 75 MG PO (09:20)
[2024-12-11] MEDS: LOW STRENGTH ASPIRIN 81 MG PO (09:20)
[2024-12-11] MEDS: SENOKOT-S 1 TABLET PO (09:20)
[2024-12-11] MEDS: ZESTRIL 5 MG PO (09:21)
--- NOTE | 2024-12-11 10:59 | W.PN.HOSP.TC ---
Addendum entered and electronically signed by Lavinia Jarrell MD 12/11/24 14:12:
Per RN, patient and family declined [facility]. Patient would like to return home.
Discharge today with home health.
Original Note:
Today's Communication/Plan
-
see A/P
Assessment / Plan
Assessment / Plan
HPI: 84-year-old with history of hypertension and hyperlipidemia presenting to the emergency department with left-sided facial droop, slurred speech and some disorientation concerning for CVA/TIA.
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 Stroke alert was called.
In the ED, there is no facial droop or slurred speech appreciated.
She does have moderate risk of CVA.
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
A/P:
# facial droop, slurred speech, disorientation, which appear to have resolved,
CT head showed old lacunar infarcts
MRI brain noted Probable acute/subacute infarcts in the bilateral centrum semiovale/periventricular regions, nonhemorrhagic.
Carotid US unrevealing: Minimal calcified plaque within the left carotid bulb, less than 50% stenosis. No significant right carotid bulb plaque or stenosis.
Cont DAPT 21 days total, then ASA after that
started low dose statin for LDL 103
Cont low cholesterol diet
echo obtained was unrevealing: EF 60-65%. Mild aortic regurgitation. Mild to moderate mitral regurgitation.
Urine culture sent, Mixed guicho present, hence probable contamination
PT OT recc acute rehab , CM to facilitate
Neuro on board
# hypertension urgency
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
Added lisinopril 5 mg (pt was previously on lisinopril 5 mg)
IV hydralazine for SBP > 180
# hyperlipidemia
LDL 103
started low dose statin
DVT prophylaxis�Lovenox subcu
CODE STATUS�full code
DW son on the phone extensively. Informed about MRI finding and now dispo plan changed to [facility].
DW CM
total time spent 51 min
Anticipated Discharge: 24 - 48 hours
Subjective/Interval History
-
Date of Service: December 11, 2024
Objective Data
-
Labs:
Laboratory Results
12/11/24
05:55
Sodium 139
Potassium 3.7
Chloride 105
Carbon Dioxide 27
BUN 22 H
Creatinine 0.8
Glucose 98
Calcium 8.8
Vital Signs:
Vital Signs
Temp Pulse Resp BP Pulse Ox
36.9 C 75 16 176/85 94
12/11/24 07:05 12/11/24 09:21 12/11/24 07:05 12/11/24 09:21 12/11/24 07:05
I&O
12/10/24 12/11/24 12/12/24
06:59 06:59 06:59
Intake Total 3237 / 3237 960 / 960
Balance 3237 / 3237 960 / 960
Review of Systems
-
History Source: Patient
All other systems: Reviewed and negative
Physical Exam
-
General: Well Developed, Well Nourished, No Apparent Distress, Comfortable and Conversant; Negative Respiratory Distress
HEENT: Normocephalic, Atraumatic, Nose Appears Normal and Ears Appear Normal; Negative Oxygen
Respiratory: Clear to Auscultation and Non Labored Respirations; Negative Accessory Resp Muscle Use
Cardiac: Regular Rhythm and S1/S2
GI: Soft, Nontender, Nondistended and Normal Bowel Sounds
Skin: Warm and Dry
Neuro: Awake, Alert, Oriented and AO x 3; Negative No Sensory Deficits, Slurred Speech or Facial Droop
Psych: Calm and Intact Judgement/Insight (somewhat)
Data Reviewed
-
CT Scan: Report Reviewed by me
MRI: Report Reviewed by me, Discussed with Patient and Discussed with Family
Labs: Labs Reviewed by me
[2024-12-11 11:00] VITALS: BP 171/79
--- NOTE | 2024-12-11 11:13 | CM ---
Addendum entered by Wilfred Iniguez 12/11/24 14:14:
CM met with pt again and pt stated she feels very strongly she will not need acute rehab and pt requested to return back home with V[facility] instead of going to rehab. Pt stated her son and daughter are coming here to take her home. [facility]N choices given. Pt
preferred [facility]. [facility].
Discharge order noted. Pt is aware, expressed her agreement with discharge. pt still OBS status, No IMM review needed.
Please fax discharge instructions to [facility] at [phone]
D/C plan: home with [facility] and family support. Daughter to transport.
Original Note:
CM following re: discharge planning.
Reviewed pt's chart, met with pt.
PT and OT evaluations noted - acute rehab recommended. Pt is aware, expressed her agreement and pt requested [facility]. A referral to [facility] made.
D/C plan: [facility].
CM will follow to assist pt with discharge to [facility].
--- NOTE | 2024-12-11 14:07 | W.DCSUMMARY ---
Discharge Summary
Discharge Data
Date of Admission: 12/08/24
Date of Discharge: 12/11/24
Total time spent discharging patient (in min): 40
-
Pending Results: No
Hospital Course
Principal Diagnosis:
Resolved facial droop, slurred speech, disorientation, due to probable acute/subacute infarcts in the bilateral centrum semiovale/periventricular regions, nonhemorrhagic.
Chronic Diagnoses:�
Hypertension
Hyperlipidemia
Consultations:�
Neurology
Procedures:�
None
Clinical course:�
This is a 84-year-old female with past medical history as stated above who presented with resolved left-sided facial droop, slurred speech and disorientation.
Problem 1:
Resolved facial droop, slurred speech, disorientation, due to probable acute/subacute infarcts in the bilateral centrum semiovale/periventricular regions, nonhemorrhagic.
Her carotid US was unrevealing: minimal calcified plaque within the left carotid bulb, less than 50% stenosis. No significant right carotid bulb plaque or stenosis.
Cont DAPT 21 days total, then ASA after that.
She was started with low-dose Lipitor 20 mg daily as her LDL was noted to be mildly elevated at 103.
An echo was obtained which was unrevealing: EF 60-65%. Mild aortic regurgitation. Mild to moderate mitral regurgitation.
Although she was recommended acute rehab per PT OT, she declined rehab and preferred to be discharged home.
She was discharged home with home health.
Problem 2:
Hypertension urgency.
Lisinopril 5 mg daily was added this admission, in addition to her prior to admission Bystolic.
She can follow-up with her PCP for blood pressure monitor management.
Problem 3:
Hyperlipidemia.
LDL 103
Low-dose Lipitor 20 mg daily was added.
As for the rest of her medical problems, they were stable during her hospital stay.
Discharge Plan
-
Patient Disposition: Home with Home Care
Discharge Diagnosis/Procedures: Facial droop, slurred speech, disorientation, with MRI brain noted probable acute/subacute infarcts in the bilateral centrum semiovale/periventricular regions, nonhemorrhagic;
Hypertension urgency;
Hyperlipidemia, LDL 103
Condition: Fair
Diet: As tolerated, Low Fat, Low Cholesterol and Low Sodium
Activity: As tolerated
Driving Restrictions: Not until seen by your Dr
Other Services: VN
Activity Restrictions/Additional Instructions:
Follow up with your PCP for BP monitoring and control.
Referrals:
Joe Suarez MD [Family Provider, [facility]] - in less than 1 week
Additional Discharge Medication Instructions: Continue Aspirin and Plavix for 20 days then aspirin after that.
You were started with Atorvastatin 20 mg for hyperlipidemia.
You were started with Lisinopril 5 mg for better blood pressure control.
Prescriptions:
New
atorvastatin 20 mg Tablet
20 mg PO QPM Qty: 30 0RF
aspirin 81 mg Tablet,Chewable
81 mg PO DAILY Qty: 30 0RF
clopidogrel 75 mg Tablet
75 mg PO DAILY Qty: 20 0RF
lisinopril 5 mg Tablet
5 mg PO DAILY Qty: 30 0RF
Continued
calcium carbonate [Oyster Shell Calcium 500] 500 MG tablet
500 mg PO DAILY
venlafaxine [Effexor XR] 150 mg Capsule,Extended Release 24hr
150 mg PO DAILY
nebivolol [Bystolic] 5 mg Tablet
5 mg PO DAILY
Jose Laser Focus Gummys
2 gummy PO DAILY
Discharge Orders:
Discharge Patient (As Directed); Ordered 12/11/24
Ordered By: Lavinia Jarrell
Discharge Date and Time
Print Language: GIBRALTARIAN
[2024-12-11 14:59] VITALS: BP 145/91
== END 2024-12-11 15:38 | disposition home health service (06) | DRG 304 ==
LOC: 2 SOUTH 07:35
PROVIDERS: Emergency Medicine; ADMITTING PHYSICIAN Internal Medicine; ATTENDING PHYSICIAN Internal Medicine; CONSULT PHYSICIAN Psychiatry & Neurology Neurology; EMERGENCY PHYSICIAN Emergency Medicine; FAMILY PHYSICIAN Family Medicine
DX: I16.0 Hypertensive urgency (principal); I63.9 Cerebral infarction, unspecified; R47.81 Slurred speech; R29.810 Facial weakness; E78.00 Pure hypercholesterolemia, unspecified; F41.9 Anxiety disorder, unspecified; I34.0 Nonrheumatic mitral (valve) insufficiency; I10 Essential (primary) hypertension; R47.1 Dysarthria and anarthria; K21.9 Gastro-esophageal reflux disease without esophagitis; K29.50 Unspecified chronic gastritis without bleeding; Z96.651 Presence of right artificial knee joint; Z87.891 Personal history of nicotine dependence; Z90.49 Acquired absence of other specified parts of digestive tract; Z88.1 Allergy status to other antibiotic agents; Z88.0 Allergy status to penicillin; Z88.2 Allergy status to sulfonamides; Z88.8 Allergy status to other drugs, medicaments and biological substances; Z91.048 Other nonmedicinal substance allergy status; Z86.73 Personal history of transient ischemic attack (TIA), and cerebral infarction without residual deficits
CPT/HCPCS: 70450; 70553; 71046; 80048; 80053; 80061; 81003; 81015; 82077; 82607; 82728; 82746; 83036; 83735; 84443; 85025; 85027; 85652; 87086; 92507; 92523; 92526; 92610; 93005; 93306; 93880; 95816; 97116; 97129; 97163; 97167; 97530; 99285; A9575; G0378